=== PATIENT | male | born 1925 | race Caucasian/White ===

== ENCOUNTER → 2016-12-09 | Outpatient (CLI) | payer MEDICARE, BC ==
[~2016-12-09] MED LIST: ACIPHEX20 MG PO; ALDACTONE 25MG25 MG PO; ASPIR 8181 MG PO; GUAIFENESIN; IMDUR ER TAB 3030 MG PO; IPRAT-ALBUT 0.5-3 ML INH; LASIX20 MG PO; LISINOPRIL20 MG PO; OMNICEF 300 MG300 MG PO; PLAVIX 75 MG TA75 MG PO; SYNTHROID50 MCG PO; TOLTERODINE TART4 MG PO; TOPROL XL50 MG PO; TRAVATAN Z2.5 ML OP
== END ==
LOC: HEART 5 12-07 14:30
DX: I47.2 Ventricular tachycardia (principal); I25.5 Ischemic cardiomyopathy
CPT/HCPCS: 93306

== ENCOUNTER 2016-12-22 11:59 | Emergency (ER) | payer MEDICARE, BC ==
[2016-12-22 14:47] LABS: HEMOGLOBIN 11.9 gm/dl (14.0-17.5); RED BLOOD COUNT 3.76 M/UL (4.20-5.50); WHITE BLOOD COUNT 9.4 K/UL (4.5-11.0)
== END 2016-12-22 19:50 | disposition home or self-care (01) ==
LOC: ER1 11:59
PROVIDERS: Physician Assistant
DX: S43.401A Unspecified sprain of right shoulder joint, initial encounter (principal); S20.211A Contusion of right front wall of thorax, initial encounter; S50.811A Abrasion of right forearm, initial encounter; I10 Essential (primary) hypertension; I48.91 Unspecified atrial fibrillation; Z79.02 Long term (current) use of antithrombotics/antiplatelets; W01.0XXA Fall on same level from slipping, tripping and stumbling without subsequent striking against object, initial encounter; Y92.009 Unspecified place in unspecified non-institutional (private) residence as the place of occurrence of the external cause
CPT/HCPCS: 36415; 70450; 71010; 71250; 80053; 82550; 82553; 83874; 84484; 85025; 93005; 96374; 96375; 96376; 99284; J2270; J2405; J7030